=== PATIENT | male | born 1955 | race Caucasian/White ===

== ENCOUNTER → 2022-08-27 08:01 | Outpatient (CLI) | payer OTHER, SELFPAY ==
--- NOTE | ~2022-08-27 | US_ITS ---
US abdomen complete EXAMINATION: US Abdomen Complete INDICATION: History of kidney stones PROCEDURE: Realtime High Resolution abdomen ultrasound. COMPARISON: No prior studies for comparison FINDINGS: There are gallbladder polyps, largest measuring 4 mm. Common bile duct measures 3 mm. Liver echotexture within normal limits without focal mass. Pancreas within normal limits. Pancreati c tail is obscured by bowel gas. Spleen is unremarkeable. Renal echotexture is within normal limits bilaterally without contour deforming mass or renal stone. Right kidney measures 13 cm. Left kidney m easures 15.1 cm. There are left renal cysts, largest measuring 1.6 cm. Mild left hydronephrosis. No d efinitive shadowing stones are identified. If there is concern for renal stones, consider CT. Visualized aspects of the aorta and IVC are within normal limits. Portal vein is patent. No sonograph ic Taveras's sign indicated by the technologist. The umbilical area is unremarkable without definite h ernia. IMPRESSION: 1: Gallbladder polyps, largest measuring 4 mm. 2: Left renal cysts, largest measuring 1.6 cm. Reviewed, dictated and finalized at location A.
== END ==
DX: R10.9 Unspecified abdominal pain (principal); K82.4 Cholesterolosis of gallbladder; N28.1 Cyst of kidney, acquired
CPT/HCPCS: 76700

== ENCOUNTER → 2023-05-25 08:30 | Outpatient (CLI) | payer OTHER, SELFPAY ==
--- NOTE | ~2023-05-25 | US_ITS ---
EXAMINATION: US abdomen complete DATE: 05/25/2023 08:58 INDICATION: Gallbladder polyp. TECHNIQUE: Multiple grayscale and Doppler ultrasound images of the abdomen were obtained. COMPARISON: Ultrasound 08/27/2022 FINDINGS: The visualized portions of the head and body of the pancreas are normal. There is diffuse h epatic steatosis. There are normal flow in main portal vein. The gallbladder is normal in size. No vi sible gallstones. There are multiple polyps in the gallbladder measuring up to 3 mm. The spleen is no rmal in size. The kidneys are normal in size. There is mild left hydronephrosis. There is a 9 mm cyst in left kidney. The aorta is normal in size and demonstrates atherosclerosis. Inferior vena cava is normal. IMPRESSION: 1. Small gallbladder polyps, likely benign. No follow-up is needed. 2. Diffuse hepatic steatosis. 3. Mild left hydronephrosis. Reviewed, dictated and finalized at location A.
== END ==
DX: K82.4 Cholesterolosis of gallbladder (principal); K76.0 Fatty (change of) liver, not elsewhere classified; N13.30 Unspecified hydronephrosis
CPT/HCPCS: 76700